=== PATIENT | female | born 1950 | race Caucasian/White ===

== ENCOUNTER 2019-06-05 06:03 | Day surgery (SDC) | payer MEDICARE, MEDICAID ==
[2019-06-02 14:19] LABS: BASOPHILS % (AUTO) 0.3 % (0-1); EOSINOPHILS # (AUTO) 0.1 X10'3 (0-0.9); LYMPHOCYTES # (AUTO) 2.4 X10'3 (1.1-4.8); LYMPHOCYTES % (AUTO) 37.5 % (21-51); MEAN CORPUSCULAR HEMOGLOBIN 31.9 PG (27.0-31.0); MEAN CORPUSCULAR HGB CONC 33.8 g/dL (33.0-36.5); MEAN CORPUSCULAR VOLUME 94.5 FL (78-98); MEAN PLATELET VOLUME 7.9 FL (7.4-10.4); MONOCYTES # (AUTO) 0.5 X10'3 (0-0.9); MONOCYTES % (AUTO) 7.9 % (2-12); NEUTROPHILS # (AUTO) 3.4 X10'3 (1.8-7.7); NEUTROPHILS % (AUTO) 53.3 % (42-75); PRE OP HEMATOCRIT 40.1 % (35.0-45.0); PRE OP HEMOGLOBIN 13.5 g/dL (12.0-16.0); PRE OP PLATELET COUNT 256 X10'3 (140-440); RED BLOOD COUNT 4.24 X10'6 (4.20-5.60); RED CELL DISTRIBUTION WIDTH 13.3 % (11.5-14.5)
[2019-06-02 14:32] LABS: ALBUMIN 3.8 G/DL (3.4-5.0); ALBUMIN/GLOBULIN RATIO 1.2 (1.1-1.5); ALKALINE PHOSPHATASE 55 IU/L (46-116); BLOOD UREA NITROGEN 17 MG/DL (7-18); BUN/CREATININE RATIO 23.3 (6.6-38.0); CALCIUM 8.9 MG/DL (8.5-10.1); CHLORIDE 106 MMOL/L (99-107); CREATININE 0.73 MG/DL (0.40-0.90); PRE OP ALT 24 U/L (30-65); PRE OP ANION GAP 10 (8-16); PRE OP AST 12 U/L (10-37); PRE OP BILIRUB, TOTAL 0.8 MG/DL (0.0-1.0); PRE OP GLUCOSE 98 MG/DL (70-104); PRE OP POTASSIUM 3.8 MMOL/L (3.4-5.1); PRE OP SODIUM 141 MMOL/L (135-145); TOTAL CARBON DIOXIDE 25.1 MMOL/L (24-32); TOTAL PROTEIN 7.1 G/DL (6.4-8.2); eGFR 80 ML/MIN
[2019-06-05] VITALS (8 sets, daily range): BP systolic 107–139; BP diastolic 57–91
[~2019-06-05] VITALS: Ht 162.6 cm; Wt 75.8 kg
[~2019-06-05 06:03] MED LIST: MELO-102 PO; cefazolin/dext.iso 2gm/100 ML IV ONE; famotidine 20mg tablet PO ONE; ringers solution, lacted 1,000 ML IV SCH
[2019-06-05] MEDS ORDERED: BUPIVAcaine/PF 2.5mg/ml (0.25%) 10ml vial ONE (06:32)
[2019-06-05] MEDS ORDERED: LIDOcaine 1% (10mg/ml) 2ml vial ONE (06:34)
[2019-06-05] MEDS ORDERED: LIDOcaine 1% 30ml preserv. free vial ONE (07:20)
[2019-06-05] MEDS ORDERED: ringers solution, lacted 1,000 ML IV SCH (07:42)
[2019-06-05] MEDS ORDERED: meperidine/PF 25mg/ml syringe IV PRN ×3 (07:45)
[2019-06-05] MEDS ORDERED: morphine 4 MG/ML inj SYRINge IV PRN ×2 (07:45)
[2019-06-05] MEDS ORDERED: proCHLORperazine 10 MG/2 ml inj IV PRN (07:45)
[2019-06-05] MEDS ORDERED: ondansetron/PF 4mg/2ml inj IV PRN (07:45)
[2019-06-05] MEDS ORDERED: ondansetron/PF 4mg/2ml inj ONE (08:07)
[2019-06-05] MEDS ORDERED: MIDAZolam 5mg/5ml vial ONE (08:10)
[2019-06-05] MEDS ORDERED: fentaNYL/PF 50MCG/1 ML 2ML syringe ONE ×2 (08:11→09:05)
[2019-06-05] MEDS ORDERED: ketorolac trometh. 30mg/ml inj. ONE (08:11)
[2019-06-05] MEDS ORDERED: propofol inj 20 ML IV ONE (09:21)
[2019-06-05] MEDS ORDERED: ketamine 50mg/5ml syringe ONE (09:29)
--- NOTE | 2019-06-05 10:04 | NUR ---
Received from OR via , accompanied by Anesthesiologist DR COOPER and report given by Anesthesiolgist. AWAKENS TO VOICE. VITALS STABLE. DRESSING DI. EDA PAIN.
--- NOTE | 2019-06-05 11:14 | NUR ---
AWAKE AND ORIENTED. VITALS STABLE. DRESSING DI. EDA PAIN. HOME WITH FAMILY AT THIS TIME.
== END 2019-06-05 11:14 | disposition home or self-care (01) ==
LOC: PAS 06:03
PROVIDERS: ATTEND Orthopaedic Surgery Hand Surgery
DX: M18.11 Unilateral primary osteoarthritis of first carpometacarpal joint, right hand (principal); M19.041 Primary osteoarthritis, right hand; M19.042 Primary osteoarthritis, left hand; Z87.891 Personal history of nicotine dependence; Z72.89 Other problems related to lifestyle; G47.30 Sleep apnea, unspecified; Z88.2 Allergy status to sulfonamides; Z88.8 Allergy status to other drugs, medicaments and biological substances; Z79.899 Other long term (current) drug therapy
CPT/HCPCS: 25310; 25447; 26860; 26861; 36415; 80053; 82948; 85025; 93005; C1713; J1885; J2001; J2250; J2405; J2704; J3010; J3490; J7120; A4215; A4618; A7000